=== PATIENT | female | born 2005 | race Caucasian/White ===

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

== ENCOUNTER 2025-02-25 19:04 | Emergency (ER) | payer BC ==
[2025-02-25 19:16] VITALS: BP 120/84; PULSE 85
[2025-02-25] MEDS: Ondansetron 4 MG/2 ML SDV IVPUSH ONE (20:31)
[2025-02-25] MEDS: Acetaminophen/oxyCODONE 325-5 MG Tab PO ONE (20:58)
== END 2025-02-25 22:05 | disposition home or self-care (01) ==
LOC: JD.ED 19:04
DX: G89.18 Other acute postprocedural pain (principal); M25.562 Pain in left knee; F17.210 Nicotine dependence, cigarettes, uncomplicated; Z88.8 Allergy status to other drugs, medicaments and biological substances; Z79.899 Other long term (current) drug therapy; Z86.16 Personal history of COVID-19
CPT/HCPCS: 96361; 96374; 96375; 99283; A9270; J2405; J7030; 99284; J1171

== ENCOUNTER 2025-03-01 22:33 | Emergency (ER) | payer BC ==
[2025-03-01] MEDS: Acetaminophen/oxyCODONE 325-5 MG Tab PO ONE (23:53)
[2025-03-02 02:42] VITALS: BP 104/73; PULSE 93
== END 2025-03-02 02:02 | disposition home or self-care (01) ==
LOC: JD.ED 22:33
DX: G89.18 Other acute postprocedural pain (principal); M25.562 Pain in left knee; M79.662 Pain in left lower leg; F17.210 Nicotine dependence, cigarettes, uncomplicated; Z90.49 Acquired absence of other specified parts of digestive tract; Z88.8 Allergy status to other drugs, medicaments and biological substances; Z88.6 Allergy status to analgesic agent; Z79.899 Other long term (current) drug therapy; Z86.16 Personal history of COVID-19
CPT/HCPCS: 73560; 73590; 93971; 99284; A9270

== ENCOUNTER 2025-03-10 19:38 | Emergency (ER) | payer BC ==
[2025-03-10] MEDS ORDERED: Sodium Chloride 0.9% 10 ML Syringe FLUSH PRN (20:00)
[2025-03-10] MEDS ORDERED: Iopamidol 612 MG/ML 100 ML Bottle IVPUSH ONE (20:31)
[2025-03-10 20:36] LABS: BASOPHILS ABSOLUTE AUTO 0.1 K/mm3 (0.0-0.3); BASOPHILS PERCENT AUTO 0.9 % (0.0-1.0); EOSINOPHILS ABSOLUTE AUTO 0.1 K/mm3 (0.0-0.7); EOSINOPHILS PERCENT AUTO 1.4 % (0.0-5.0); IMMATURE GRAN ABSOLUTE AUTO 0.02 K/mm3 (0.00-0.05); IMMATURE GRAN PERCENT AUTO 0.3 % (0.0-0.4); LYMPHOCYTES ABSOLUTE AUTO 2.6 K/mm3 (2.0-8.8); LYMPHOCYTES PERCENT AUTO 39.5 % (50.0-65.0); MEAN PLATELET VOLUME 8.6 fl (9.4-12.3); MONOCYTES ABSOLUTE AUTO 0.5 K/mm3 (0.1-1.4); MONOCYTES PERCENT AUTO 7.2 % (2.0-10.0); NEUTROPHILS ABSOLUTE AUTO 3.4 K/mm3 (1.5-8.5); NEUTROPHILS PERCENT AUTO 50.7 % (35.0-45.0); NRBC ABSOLUTE 0.00 (0.00-0.03); NRBC PERCENT 0.0 % (0.0-0.2); PLATELET COUNT,PLT 294 K/mm3 (150-400); RED BLOOD CELL COUNT 4.71 M/mm3 (4.10-5.30); WHITE BLOOD CELL COUNT,WBC 6.63 K/mm3 (4.5-13.5)
[2025-03-10] MEDS: Ondansetron 4 MG/2 ML SDV IVPUSH ONE (20:40)
[2025-03-10 20:59] LABS: APPEARANCE,URINE CLEAR (Clear); GLUCOSE,URINE NEGATIVE (Negative); OCCULT BLOOD,URINE NEGATIVE (Negative)
[2025-03-10 21:15] LABS: A/G RATIO 1.0 (1-2); ALANINE AMINOTRANSFERASE,ALT 41.0 U/L (14-59); ASPARTATE AMNIOTRANSFERASE,AST 18.0 U/L (15-37); BILIRUBIN TOTAL 0.5 mg/dL (0.2-1.0); BLOOD UREA NITROGEN,BUN 11.0 mg/dL (7-18); CARBON DIOXIDE,CO2 28.0 mEq/L (21-32); CHLORIDE,CL 106.0 mEq/L (98-107); CREATININE 0.9 mg/dL (0.55-1.02); EST CRCL DRUG DOSING (CG) 83.17 mL/min; ESTIMATED GFR 94.0 mL/min (>60); GLUCOSE RANDOM 103.0 mg/dL (70-99); POTASSIUM,K 3.9 mEq/L (3.5-5.1); PROTEIN TOTAL,TP 7.5 g/dl (6.4-8.2); SODIUM,NA 141.0 mEq/L (136-145)
[2025-03-10 22:05] VITALS: BP 124/83; PULSE 74
== END 2025-03-10 22:04 | disposition home or self-care (01) ==
LOC: JD.ED 19:38
DX: K59.00 Constipation, unspecified (principal); R10.31 Right lower quadrant pain; R11.2 Nausea with vomiting, unspecified; Z88.8 Allergy status to other drugs, medicaments and biological substances; Z79.899 Other long term (current) drug therapy; Z86.16 Personal history of COVID-19
CPT/HCPCS: 36415; 74177; 80053; 81003; 83690; 84703; 85025; 86140; 96361; 96374; 99284; J2405; J7030; 99283

== ENCOUNTER 2025-05-12 11:09 | Emergency (ER) | payer BC ==
[2025-05-12] MEDS ORDERED: Sodium Chloride 0.9% 10 ML Syringe FLUSH PRN (11:30)
[2025-05-12 11:37] LABS: BASOPHILS ABSOLUTE AUTO 0.0 K/mm3 (0.0-0.3); BASOPHILS PERCENT AUTO 1.1 % (0.0-1.0); EOSINOPHILS ABSOLUTE AUTO 0.1 K/mm3 (0.0-0.7); EOSINOPHILS PERCENT AUTO 1.7 % (0.0-5.0); IMMATURE GRAN ABSOLUTE AUTO 0.01 K/mm3 (0.00-0.05); IMMATURE GRAN PERCENT AUTO 0.3 % (0.0-0.4); LYMPHOCYTES ABSOLUTE AUTO 1.6 K/mm3 (2.0-8.8); LYMPHOCYTES PERCENT AUTO 46.3 % (50.0-65.0); MEAN PLATELET VOLUME 9.7 fl (9.4-12.3); MONOCYTES ABSOLUTE AUTO 0.2 K/mm3 (0.1-1.4); MONOCYTES PERCENT AUTO 6.0 % (2.0-10.0); NEUTROPHILS ABSOLUTE AUTO 1.6 K/mm3 (1.5-8.5); NEUTROPHILS PERCENT AUTO 44.6 % (35.0-45.0); NRBC ABSOLUTE 0.00 (0.00-0.03); NRBC PERCENT 0.0 % (0.0-0.2); PLATELET COUNT,PLT 188 K/mm3 (150-400); RED BLOOD CELL COUNT 5.41 M/mm3 (4.10-5.30); WHITE BLOOD CELL COUNT,WBC 3.50 K/mm3 (4.5-13.5)
[2025-05-12 11:59] LABS: A/G RATIO 1.3 (1-2); ALANINE AMINOTRANSFERASE,ALT 24.0 U/L (14-59); ASPARTATE AMNIOTRANSFERASE,AST 17.0 U/L (15-37); BILIRUBIN TOTAL 1.1 mg/dL (0.2-1.0); BLOOD UREA NITROGEN,BUN 11.0 mg/dL (7-18); CARBON DIOXIDE,CO2 25.0 mEq/L (21-32); CHLORIDE,CL 107.0 mEq/L (98-107); CREATININE 0.8 mg/dL (0.55-1.02); EST CRCL DRUG DOSING (CG) 93.56 mL/min; ESTIMATED GFR 109.0 mL/min (>60); GLUCOSE RANDOM 99.0 mg/dL (70-99); POTASSIUM,K 3.7 mEq/L (3.5-5.1); PROTEIN TOTAL,TP 8.1 g/dl (6.4-8.2); SODIUM,NA 143.0 mEq/L (136-145)
[2025-05-12] MEDS: diphenhydrAMINE 50 MG/ML SDV IVPUSH ONE (12:00)
[2025-05-12] MEDS: droPERidol 2.5 MG/ML SDV IV ONE (12:02)
[2025-05-12 15:43] VITALS: BP 103/65; PULSE 73
== END 2025-05-12 14:55 | disposition home or self-care (01) ==
LOC: JD.ED 11:09
DX: R51.9 Headache, unspecified (principal); E66.9 Obesity, unspecified; Z88.5 Allergy status to narcotic agent; Z88.8 Allergy status to other drugs, medicaments and biological substances; Z79.899 Other long term (current) drug therapy; Z86.16 Personal history of COVID-19; Z90.49 Acquired absence of other specified parts of digestive tract; Z68.25 Body mass index [BMI] 25.0-25.9, adult
CPT/HCPCS: 36415; 70450; 80053; 84703; 85025; 96374; 96375; 99284; J1200; J1790; J7030; 99283